=== PATIENT | female | born 1955 ===

== ENCOUNTER 2017-09-02 15:22 | Outpatient (CLI) | payer OTHER ==
--- NOTE | 2017-09-11 16:32 | Mammography Report ---
SCREENING MAMMOGRAM: 09/02/2017 CLINICAL INDICATION: A 61-year-old for baseline. TECHNIQUE: Routine CC and MLO projections and bilateral laterally exaggerated craniocaudal views were obtained of the breasts. FINDINGS: The breasts demonstrate heterogeneously dense fibroglandular parenchyma bilaterally. There are grouped calcifications in the left upper outer breast. Further evaluation with spot magnification views is recommended. No mammographically suspicious findings are appreciated in the right breast. IMPRESSION: INCOMPLETE EXAMINATION. RECOMMENDATION: Additional evaluation of the left breast as above. BI-RADS CATEGORY 0, INCOMPLETE. STANDARD QUALIFYING STATEMENTS: 1. This examination was reviewed with the aid of Computer-Aided Detection (CAD). 2. A negative or benign imaging report should not delay biopsy if clinically suspicious findings are present. Consider surgical consultation if warranted. More than 5% of cancers are not identified by imaging. 3. Dense breasts may obscure an underlying neoplasm. TD: 09/11/2017 16:30
== END 2017-09-02 15:23 | disposition home or self-care (01) ==
LOC: DI 15:22
PROVIDERS: ATTEND Family Medicine
DX: Z12.31 Encounter for screening mammogram for malignant neoplasm of breast (principal); R92.1 Mammographic calcification found on diagnostic imaging of breast; Z87.898 Personal history of other specified conditions
CPT/HCPCS: 77067

== ENCOUNTER 2017-10-04 13:33 | Outpatient (CLI) | payer OTHER ==
--- NOTE | 2017-10-04 17:10 | Mammography Report ---
DIGITAL DIAGNOSTIC LEFT MAMMOGRAM: 10/04/2017 CLINICAL INDICATION: Calcifications on baseline. TECHNIQUE: Left true lateral and spot magnification views. COMPARISON: 09/02/2017 FINDINGS: The left breast again demonstrates heterogeneously dense fibroglandular parenchyma. The calcifications in question, in the left upper outer central breast, are punctate on spot magnification views. No associated mass or architectural distortion is identified. IMPRESSION: PROBABLE BENIGN CALCIFICATIONS. RECOMMENDATION: Diagnostic left mammogram in 6 months, to assure stability. BIRADS category: 3, probable benign findings. STANDARD QUALIFYING STATEMENTS 1. This examination was reviewed with the aid of Computed-Aided Detection (CAD). 2. A negative or benign imaging report should not delay biopsy if clinically suspicious findings are present. Consider surgical consultation if warranted. More than 5% of cancers are not identified by imaging. 3. Dense breasts may obscure an underlying neoplasm. TD: 10/04/2017 14:06
== END 2017-10-04 13:34 | disposition home or self-care (01) ==
LOC: DI 13:33
PROVIDERS: ATTEND Physician Assistant
DX: R92.8 Other abnormal and inconclusive findings on diagnostic imaging of breast (principal)

== ENCOUNTER 2018-06-13 08:33 | Outpatient (CLI) | payer OTHER ==
--- NOTE | 2018-06-13 10:25 | Mammography Report ---
Reason: BIRAD 3 MAMMO 10/23/17 L CALCIFICATIONS Procedure Date: 06/13/2018 Accession Number: [id number] / [id number] Procedure: [facility] - Diagnostic Dig Bilat CPT Code: FULL RESULT: EXAM: Diagnostic Dig Bilat DATE: 06/13/2018 9:14 AM CLINICAL HISTORY: Short interval follow-up for left breast calcifications noted on new baseline screening exam of 09/02/2017 (older mammograms not available). Right breast screening. No personal history of breast cancer. Family history of breast cancer in mother at age 35 TECHNIQUE: Bilateral CC and MLO views were obtained. Additional magnified left CC and MLO obtained. Full field 90 degree lateral left breast. COMPARISON: 10/04/20174 FINDINGS: The breasts demonstrate heterogeneously dense fibroglandular parenchyma bilaterally. Left breast: There is a stable 7 mm grouping of mixed punctate and amorphous calcifications in the 2:00 breast 4.5 cm from the nipple, slightly unique to other calcifications in the breast. There are loosely distributed punctate calcifications noted in the lateral breast. There are no suspicious masses or areas of distortion. Right breast: There are no suspicious masses, calcifications or areas of distortion. IMPRESSION: Left breast: 7 mm indeterminate group of calcifications 2 o'clock breast as described. Suspicious. BI-RADS Category 4. Stereotactic breast biopsy and marker placement is recommended. Right breast: Negative. BI-RADS Category 1. Recommend annual screening mammography. RECOMMENDATION: Stereotactic left breast biopsy. Note: If there are older comparison films than 09/02/2017 which can be obtained demonstrating long-term stability of these calcifications, biopsy can be obviated. BI-RADS CATEGORY BI-RADS Category 4. Suspicious. STANDARD QUALIFYING STATEMENTS: 1. This examination was not reviewed with the aid of Computer-Aided Detection (CAD). 2. A negative or benign imaging report should not preclude biopsy if clinically suspicious findings are present. 3. Dense breasts may obscure an underlying neoplasm. 4. This examination was reviewed with the aid of 3D breast imaging (tomosynthesis).
== END 2018-06-13 08:34 | disposition home or self-care (01) ==
LOC: DI 08:33
PROVIDERS: ATTEND Family Medicine
DX: R92.1 Mammographic calcification found on diagnostic imaging of breast (principal); Z80.3 Family history of malignant neoplasm of breast
CPT/HCPCS: 77066

== ENCOUNTER 2018-07-08 13:23 | Outpatient (CLI) | payer OTHER ==
[2018-07-08] MEDS ORDERED: BUFFERED LIDOCAINE 10 ML SYRINGE ONE (14:22)
--- NOTE | 2018-07-09 08:38 | Mammography Report ---
Reason: ABN MAMMO - CALCIFICATIONS Procedure Date: 07/08/2018 Accession Number: [id number] / [id number] Procedure: [facility] - Stereotactic Core BX LT CPT Code: 89643 FULL RESULT: EXAM: Stereotactic Core BX LT DATE: 07/08/2018 4:55 PM CLINICAL HISTORY: ABN MAMMO - CALCIFICATIONS COMPARISON: 06/13/2018 through 09/02/2017. CLINICAL DATA: Target calcifications measuring 7 mm in the 2:00 o'clock axis of the left breast. Informed consent was obtained. The patient was positioned in the mammography machine with biopsy attachment. Targeting imaging was obtained and the lesion was selected. The breast was approached from the lateral aspect. Using standard aseptic technique, 1% buffered lidocaine was injected into the breasts for local anesthesia. A small nas was made in the skin with a #11 blade. A 9-gauge vacuum-assisted device was advanced into the breasts towards the target and confirmatory imaging was obtained to verify targeting and 16 specimens were obtained. Specimen radiography was performed which demonstrated the presence of calcifications in the sample. A biopsy marker clip was then placed into the biopsy cavity. The biopsy device was subsequently removed from the breast. Hemostasis was achieved. Follow-up 3-D mammography was then performed to verify biopsy targeting and clip placement. The mammography showed concordant clip placement. . The wound was dressed and ice applied. The patient was observed for approximately 15 minutes, then discharged from the diagnostic imaging Department in stable condition following instructions on wound care and obtaining biopsy results. The patient is scheduled on 07/11/2018 at 2:30 PM to receive her biopsy results from Dr. Soto . The tissue was sent for histologic analysis. IMPRESSION: Left breast biopsy of calcifications. RADIA
== END 2018-07-08 13:24 | disposition home or self-care (01) ==
LOC: DI 13:23
PROVIDERS: ATTEND Family Medicine
DX: R92.1 Mammographic calcification found on diagnostic imaging of breast (principal)
CPT/HCPCS: 19081

== ENCOUNTER 2022-10-25 07:03 | Outpatient (CLI) | payer OTHER ==
[2022-10-25 07:26] LABS: BASOPHILS % (AUTO) 0.8 %; EOSINOPHILS # (AUTO) 0.1 10^3/uL (0.0-0.7); EOSINOPHILS % (AUTO) 1.8 %; HCT - HEMATOCRIT 37.3 % (37.0-47.0); HGB - HEMOGLOBIN 12.6 g/dL (12.0-16.0); LYMPHOCYTES # (AUTO) 1.8 10^3/uL (1.5-3.5); LYMPHOCYTES % (AUTO) 35.9 %; MEAN CORPUSCULAR HEMOGLOBIN 31.2 pg (27.0-31.0); MEAN CORPUSCULAR HGB CONC 33.8 g/dL (32.0-36.0); MEAN CORPUSCULAR VOLUME 92.3 fL (81.0-99.0); MONOCYTES # (AUTO) 0.4 10^3/uL (0.0-1.0); MONOCYTES % (AUTO) 7.9 %; NEUTROPHILS # (AUTO) 2.6 10^3/uL (1.5-6.6); NEUTROPHILS % (AUTO) 53.4 %; PLT - PLATELET COUNT 275 10^3/uL (130-450); RED BLOOD COUNT 4.04 10^6/uL (4.20-5.40); RED CELL DISTRIBUTION WIDTH 12.9 % (12.0-15.0); WHITE BLOOD COUNT 4.9 x10^3/uL (4.8-10.8)
[2022-10-25 07:46] LABS: THYROID STIMULATING HORMONE 3.58 uIU/mL (0.34-5.60)
[2022-10-25 08:30] LABS: ALBUMIN/GLOBULIN RATIO 1.3 (1.0-2.2); ALKALINE PHOSPHATASE 41 IU/L (42-121); ALT ALANINE AMINOTRANSFERASE 14 IU/L (10-60); AST ASPARTATE AMINOTRANSFERASE 17 IU/L (10-42); BILIRUBIN,TOTAL 0.7 mg/dL (0.2-1.0); BUN - BLOOD UREA NITROGEN 21 mg/dL (6-20); CALCIUM 9.1 mg/dL (8.5-10.3); CARBON DIOXIDE - CO2 26 mmol/L (21-32); CHLORIDE 110 mmol/L (101-111); CHOL/HDL RATIO 3.2 (<4.4); CHOLESTEROL 252 mg/dL; CREATININE 0.8 mg/dL (0.4-1.0); GFR - MDRD 72 (>89); GLUCOSE 101 mg/dL (70-100); HDL CHOLESTEROL 80 mg/dL; LDL CHOLESTEROL,CALCULATED 160 mg/dL; POTASSIUM 4.1 mmol/L (3.5-5.0); SODIUM 140 mmol/L (135-145); TOTAL PROTEIN 7.1 g/dL (6.7-8.2); TRIGLYCERIDES 62 mg/dL; VLDL CHOLESTEROL 12 mg/dL
[2022-10-25 12:13] LABS: ESTIMATED AVERAGE GLUCOSE 117 mg/dL (70-100); HEMOGLOBIN A1c% 5.7 % (4.27-6.07)
== END 2022-10-25 07:04 | disposition home or self-care (01) ==
LOC: LAB 07:03
PROVIDERS: ATTEND Internal Medicine
DX: Z13.228 Encounter for screening for other metabolic disorders (principal); Z13.29 Encounter for screening for other suspected endocrine disorder; Z13.1 Encounter for screening for diabetes mellitus
CPT/HCPCS: 36415; 80053; 80061; 83036; 83721; 84443; 85025

== ENCOUNTER 2022-11-19 12:29 | Outpatient (CLI) | payer OTHER ==
--- NOTE | 2022-11-19 17:27 | DEXA Report ---
PROCEDURE: Dexa Spine and/or Hip INDICATIONS: POST MENOPAUSAL TECHNIQUE: Dual energy x-ray absorptiometry (DXA) was performed on a [employer] System. Regions measur ed are the AP Spine, femoral neck, and if needed forearm. COMPARISON: None FINDINGS: Lumbar Spine: Bone Mineral Density 0.923 g/cm/cm,T score -2.1. Left Femoral Neck: Bone Mineral Density 0.641 g/cm/cm, T score -2.9. Left Hip: Bone Mineral Density 0.725 g/cm/cm,T score -2.2. (T score greater or equal to -1.0: NORMAL) (T score from -1.1 to -2.4: OSTEOPENIA) (T score less than or equal to -2.5 to: OSTEOPOROSIS) Impression: By WHO criteria, this patient has osteoporosis. Patients with diagnosis of osteoporosis or osteopenia should have regular bone mineral density assess ment. For those eligible for Medicare, routine testing is allowed once every 2 years. Testing frequ ency can be increased for patients who have rapidly progressing disease or for those who are receivin g medical therapy to restore bone mass. Reviewed by: Filiberto Caputo MD on 11/19/2022 5:26 PM PDT Approved by: Filiberto Caputo MD on 11/19/2022 5:26 PM PDT Station ID: [id number]
== END 2022-11-19 12:30 | disposition home or self-care (01) ==
LOC: DI 12:29
PROVIDERS: ATTEND Internal Medicine
DX: Z78.0 Asymptomatic menopausal state (principal); M85.80 Other specified disorders of bone density and structure, unspecified site